=== PATIENT | male | born 1965 | race Caucasian/White ===

== ENCOUNTER 2018-01-09 12:53 | Emergency (ER) | payer OTHER ==
[2018-01-09] MEDS ORDERED: ONDANSETRON HCL 8 MG TABLET PO ONE (13:11)
[2018-01-09] MEDS ORDERED: PROCHLORPERAZINE MALEATE 10 MG TABLET PO ONE (13:11)
[2018-01-09] MEDS ORDERED: DIPHENHYDRAMINE HCL 25 MG CAPSULE PO ONE (13:11)
--- NOTE | 2018-01-09 13:14 | ER Document Report ---
ED Medical Screen (RME) - General Chief Complaint: Headache Stated Complaint: HEADACHE,NAUSEA Time Seen by Provider: 01/09/18 13:05 Notes: 52-year-old male patient drove here from [place] Tuesday night. Got here in the early evening. Onset Tuesday morning of a headache which seemed to come from the base of the skull up over top of his head and behind the eyes and temporal region. There is a roaring in the ears and nausea. He notices that it hurts worse when he looks upward. There is no reproducible tenderness to palpate the posterior cervical muscles or scalp muscles. He has never had anything like this before. I have greeted and performed a rapid initial assessment of this patient. A comprehensive ED assessment and evaluation of the patient, analysis of test results and completion of the medical decision making process will be conducted by additional ED providers. TRAVEL OUTSIDE OF THE [place] IN LAST 30 DAYS: No - Related Data Allergies/Adverse Reactions: No Known Allergies Allergy (Verified 01/09/18 12:54) Past Medical History - Social History Chew tobacco use (# tins/day): No Frequency of alcohol use: None Drug Abuse: None - Past Medical History Cardiac Medical History: Reports: Hx Hypercholesterolemia, Hx Hypertension Renal/ Medical History: Denies: Hx Peritoneal Dialysis Past Surgical History: Reports: Hx Orthopedic Surgery - right knee, left arm Physical Exam - Vital signs Vitals: Temp Pulse Resp BP Pulse Ox 97.9 F 69 20 136/82 H 97 01/09/18 12:59 01/09/18 12:59 01/09/18 12:59 01/09/18 12:59 01/09/18 12:59 Course - Vital Signs Vital signs: Temp Pulse Resp BP Pulse Ox 97.9 F 69 20 136/82 H 97 01/09/18 12:59 01/09/18 12:59 01/09/18 12:59 01/09/18 12:59 01/09/18 12:59
[2018-01-09 14:17] LABS: ABSOLUTE BASOPHILS # (AUTO) 0.1 10^3/uL (0.0-0.2); ABSOLUTE EOSINOPHILS # (AUTO) 0.3 10^3/uL (0.0-0.6); ABSOLUTE LYMPHOCYTES (AUTO) 1.5 10^3/uL (0.5-4.7); ABSOLUTE MONOCYTES (AUTO) 0.5 10^3/uL (0.1-1.4); BASOPHILS % (AUTO) 0.5 % (0-2); EOSINOPHILS % (AUTO) 2.6 % (0-6); HEMATOCRIT 43.4 % (37.9-51.0); HEMOGLOBIN 14.8 g/dL (13.5-17.0); LYMPHOCYTES % (AUTO) 14.2 % (13-45); MEAN CORPUSCULAR HEMOGLOBIN 28.7 pg (27.0-33.4); MEAN CORPUSCULAR HGB CONC 34.2 g/dL (32.0-36.0); MEAN CORPUSCULAR VOLUME 84 fl (80-97); MONOCYTES % (AUTO) 4.8 % (3-13); PLATELET COUNT 234 10^3/uL (150-450); RED BLOOD COUNT 5.17 10^6/uL (4.35-5.55); RED CELL DISTRIBUTION WIDTH 13.4 % (11.5-14.0); SEGMENTED NEUTROPHILS % (AUTO) 77.9 % (42-78); TOTAL CELLS COUNTED % (AUTO) 100 %; WHITE BLOOD COUNT 10.2 10^3/uL (4.0-10.5)
[2018-01-09 14:36] LABS: ALANINE AMINOTRANSFERASE 34 U/L (21-72); ALKALINE PHOSPHATASE 36 U/L (38-126); ANION GAP 10 (5-19); ASPARTATE AMINO TRANSFERASE 23 U/L (17-59); BILIRUBIN,DIRECT 0.4 mg/dL (0.0-0.4); BILIRUBIN,TOTAL 0.4 mg/dL (0.2-1.3); BLOOD UREA NITROGEN 15 mg/dL (7-20); CALCIUM 9.6 mg/dL (8.4-10.2); CARBON DIOXIDE 28 mmol/L (22-30); CHLORIDE 106 mmol/L (98-107); GLUCOSE 92 mg/dL (75-110); POTASSIUM 4.4 mmol/L (3.6-5.0); SODIUM 144.3 mmol/L (137-145); TOTAL PROTEIN 6.9 g/dL (6.3-8.2)
--- NOTE | 2018-01-09 14:36 | RADIOLOGY REPORT (SQ) ---
EXAM DESCRIPTION: CT HEAD WITHOUT COMPLETED DATE/TIME: 01/09/2018 2:25 pm REASON FOR STUDY: Headache with nausea and neck pain COMPARISON: None. TECHNIQUE: Axial images acquired through the brain without intravenous contrast. Images reviewed wi th bone, brain and subdural windows. Additional sagittal and coronal reconstructions were generated. Images stored on PACS. All CT scanners at this facility use dose modulation, iterative reconstruction, and/or weight based d osing when appropriate to reduce radiation dose to as low as reasonably achievable (ALARA). [facility]: Dose Right [facility]: CareDose [facility]: Dose Right [facility]: Teradose 4D [facility]: GetTaxi RADIATION DOSE: CT Rad equipment meets quality standard of care and radiation dose reduction techniq ues were employed. CTDIvol: 53.2 mGy. DLP: 1070 mGy-cm. mGy. LIMITATIONS: None. FINDINGS: VENTRICLES: Normal size and contour. CEREBRUM: No masses. No hemorrhage. No midline shift. No evidence for acute infarction. Normal gra y/white matter differentiation. No areas of low density in the white matter. CEREBELLUM: No masses. No hemorrhage. No alteration of density. No evidence for acute infarction. EXTRAAXIAL SPACES: No fluid collections. 5 mm focal area of calcification in the anterior falx (axia l series 2, image 23 and coronal series 41, image 17). ORBITS AND GLOBE: No intra- or extraconal masses. Normal contour of globe without masses. CALVARIUM: No fracture. PARANASAL SINUSES: No fluid or mucosal thickening. SOFT TISSUES: Calcified records management associate lesions. OTHER: No other significant finding. IMPRESSION: 1. NORMAL BRAIN CT WITHOUT CONTRAST. 2. 5 MM FOCAL AREA OF CALCIFICATION IN THE ANTERIOR FALX. THIS MAY REPRESENT INCIDENTAL CALCIFICATIO N IN THE FALX OR POSSIBLY A TINY MENINGIOMA. 3. CALCIFIED SCALP LESIONS. EVIDENCE OF ACUTE STROKE: NO. COMMENT: Quality ID # [id number]: Final reports with documentation of one or more dose reduction techniques (e.g., Automated exposure control, adjustment of the mA and/or kV according to patient size, use of iterative reconstruction technique) TECHNICAL DOCUMENTATION: JOB ID: [id number] [employer]- All Rights Reserved Reading location - IP/workstation name: [email or web address]
[2018-01-09] MEDS ORDERED: DIAZEPAM 5 MG TABLET PO ONE (14:45)
--- NOTE | 2018-01-09 14:45 | ER Document Report ---
ED General - General Chief Complaint: Headache Stated Complaint: HEADACHE,NAUSEA Time Seen by Provider: 01/09/18 13:05 Mode of Arrival: Ambulatory Information source: Patient, Relative, [facility] Records Notes: 52-year-old male with hypertension, hyperlipidemia presents with complaint of headache, nausea, neck pain. Patient states that 3 days prior to arrival he drove here from [place]. He states that he slept on a futon mattress and when he awoke 2 days ago he had a headache and neck pain. Patient describes the neck pain as a constant throbbing pain that starts in his forehead and radiates down to the back of his neck. Patient has had associated "ear roaring ". He denies any prior similar symptoms, recent illness, fever, blurred vision , weakness. He states he does not currently take any medications. He denies any chest pain, shortness of breath, abdominal pain, leg swelling. He has tried Tylenol, Excedrin and Motrin with minimal relief. Patient's pain is worse with sitting upright, turning his head left and right. TRAVEL OUTSIDE OF THE [place] IN LAST 30 DAYS: No - HPI Onset: Other Onset/Duration: Gradual, Constant, Persistent, Better Quality of pain: Throbbing Severity: Mild Pain Level: 2 Associated symptoms: Headache, Nausea. denies: Chest pain, Nonproductive cough , Productive cough, Earache, Fever, Hurts to breath, Leg swelling, Vomiting, Sinus pain/drainage, Shortness of breath, Sore throat, Weakness Exacerbated by: Movement Relieved by: Remaining still Similar symptoms previously: No Recently seen / treated by doctor: No - Related Data Allergies/Adverse Reactions: No Known Allergies Allergy (Verified 01/09/18 12:54) Past Medical History - General Information source: Patient, [facility] Records - Social History Smoking Status: Never Smoker Chew tobacco use (# tins/day): No Frequency of alcohol use: None Drug Abuse: None Lives with: Spouse/Significant other Family History: Reviewed & Not Pertinent Patient has suicidal ideation: No Patient has homicidal ideation: No - Past Medical History Cardiac Medical History: Reports: Hx Hypercholesterolemia, Hx Hypertension Renal/ Medical History: Denies: Hx Peritoneal Dialysis Past Surgical History: Reports: Hx Orthopedic Surgery - right knee, left arm Review of Systems - Review of Systems Notes: REVIEW OF SYSTEMS: CONSTITUTIONAL : Denies fever, chills, or sweats. Denies recent illness. Denies weight loss, recent hospitalizations. EENT: Denies visual changes, eye pain. Denies nasal or sinus congestion or discharge. Denies sore throat, oral lesions, difficulty swallowing. CARDIOVASCULAR: Denies chest pain. Denies palpitations. Denies lower extremity edema. RESPIRATORY: Denies cough, cold, or chest congestion. Denies shortness of breath, wheezing. GASTROINTESTINAL: Denies abdominal pain or distention. Denies nausea, vomiting , or diarrhea. Denies blood in vomitus, stools, or per rectum. Denies black, tarry stools. Denies constipation. GENITOURINARY: Denies difficulty urinating, painful urination, frequency, blood in urine, or vaginal discharge. MUSCULOSKELETAL: Denies back or neck pain or stiffness. Denies joint pain or swelling. SKIN: Denies rash, lesions or sores. HEMATOLOGIC : Denies easy bruising or bleeding. LYMPHATIC: Denies swollen glands. NEUROLOGICAL: Denies confusion or altered mental status. Denies passing out or loss of consciousness. Denies lightheadedness. Denies weakness or paralysis. Denies problems difficulty with ambulation, slurred speech. Denies sensory loss, numbness, or tingling. Denies seizures. PSYCHIATRIC: Denies anxiety or stress. Denies depression, suicidal ideation, or homicidal ideation. Denies visual or auditory hallucinations. Physical Exam - Vital signs Vitals: Temp Pulse Resp BP Pulse Ox 97.9 F 69 20 136/82 H 97 01/09/18 12:59 01/09/18 12:59 01/09/18 12:59 01/09/18 12:59 01/09/18 12:59 - Notes Notes: PHYSICAL EXAMINATION: GENERAL: Well-appearing, well-nourished and in no acute distress. HEAD: Atraumatic, normocephalic. EYES: Pupils equal round and reactive to light, extraocular movements intact, sclera anicteric, conjunctiva are normal. ENT: Nares patent, oropharynx clear without exudates. Moist mucous membranes. NECK: Normal range of motion, supple without lymphadenopathy. No midline tenderness. No paraspinal tenderness. LUNGS: Breath sounds clear to auscultation bilaterally and equal. No wheezes rales or rhonchi. HEART: Regular rate and rhythm without murmurs ABDOMEN: Soft, nontender, nondistended abdomen. No guarding, no rebound. No masses appreciated. Musculoskeletal: Normal range of motion, no pitting or edema. No cyanosis. NEUROLOGICAL: Cranial nerves grossly intact. Normal speech, normal gait. Normal sensory, motor exams. PSYCH: Normal mood, normal affect. SKIN: Warm, Dry, normal turgor, no rashes or lesions noted. Course - Re-evaluation Re-evalutation: Laboratory 01/09/18 01/09/18 14:06 14:06 WBC 10.2 RBC 5.17 Hgb 14.8 Hct 43.4 MCV 84 MCH 28.7 MCHC 34.2 RDW 13.4 Plt Count 234 Seg Neutrophils % 77.9 Lymphocytes % 14.2 Monocytes % 4.8 Eosinophils % 2.6 Basophils % 0.5 Absolute Neutrophils 8.0 Absolute Lymphocytes 1.5 Absolute Monocytes 0.5 Absolute Eosinophils 0.3 Absolute Basophils 0.1 Sodium 144.3 Potassium 4.4 Chloride 106 Carbon Dioxide 28 Anion Gap 10 BUN 15 Creatinine 0.92 Est GFR ( Amer) > 60 Est GFR (Non-Af Amer) > 60 Glucose 92 Calcium 9.6 Total Bilirubin 0.4 Direct Bilirubin 0.4 Neonat Total Bilirubin Not Reportable Neonat Direct Bilirubin Not Reportable Neonat Indirect Bili Not Reportable AST 23 ALT 34 Alkaline Phosphatase 36 L Total Protein 6.[address] 01/09/18 13:12 IMPRESSION: 1. NORMAL BRAIN CT WITHOUT CONTRAST. 2. 5 MM FOCAL AREA OF CALCIFICATION IN THE ANTERIOR FALX. THIS MAY REPRESENT INCIDENTAL CALCIFICATION IN THE FALX OR POSSIBLY A TINY MENINGIOMA. 3. CALCIFIED SCALP LESIONS. EVIDENCE OF ACUTE STROKE: NO. 01/09/18 14:47 52-year-old male with hypertension, hyperlipidemia presents with complaint of 2 days of headache and neck pain. Patient recently drove from [place] and spent the night on a futon bed and awoke the next morning with a headache and neck pain. He has tried Excedrin Motrin and Tylenol without relief. He denies any prior similar symptoms, recent head trauma, blood thinning medications. Upon arrival vital signs are reviewed and within normal limits. Patient is afebrile, normotensive and not hypoxic. Upon my exam patient was already medicated with Zofran, Benadryl and Compazine and reports that his headache is currently much improved and rates it a 2 out of 10. NIH was performed and 0. Patient has an otherwise normal exam. Symptoms not reproducible with head movement. 01/09/18 15:36 Patient received Toradol, Benadryl, Compazine, Zofran during his ED course. On reevaluation he states that the headache has much improved. Patient ambulated independently without difficulty. Tandem gait within normal limits. Patient still with normal neurologic exam. CT of the head was obtained and showed no evidence of stroke. There was a 5 mm area of calcification in the anterior falx which was discussed with the patient. I will provide him a copy of this report to show to his primary care physician in [place]. CBC is without leukocytosis or anemia. CMP shows no electrolyte abnormalities. Discussed symptoms that should prompt his return which included return of headache, worsening pain, vomiting, slurred speech, weakness. Patient provided the opportunity to ask questions, and express concerns. Discharge instructions discussed. Patient is agreeable with discharge home. Return indications explained and discussed with the patient who displays understanding. Patient encouraged to return to the emergency department immediately with any concerns. After performing a Medical Screening Examination, I estimate there is LOW risk for ACUTE GLAUCOMA, TEMPORAL ARTERITIS, MENINGITIS, INCRANIAL HEMORRHAGE, or ISCHEMIC STROKE thus I consider the discharge disposition reasonable. I have reevaluated this patient multiple times and no significant life threatening changes are noted. The patient and I have discussed the diagnosis and risks, and we agree with discharging home with close follow-up with the understanding that symptoms and presentations can change. We also discussed returning to the Emergency Department immediately if new or worsening symptoms occur. We have discussed the symptoms which are most concerning (e.g., changing or worsening symptoms, new numbness or weakness, vomiting, fever) that necessitate immediate return. 01/09/18 15:38 01/09/18 15:39 - Vital Signs Vital signs: Temp Pulse Resp BP Pulse Ox 98.0 F 84 17 130/68 H 98 01/09/18 15:53 01/09/18 15:53 01/09/18 15:53 01/09/18 15:53 01/09/18 15:53 - Laboratory Result Diagrams: 01/09/18 14:06 01/09/18 14:06 Laboratory results interpreted by me: 01/09/18 14:06 Alkaline Phosphatase 36 L - Diagnostic Test Radiology reviewed: Image reviewed, Reports reviewed Discharge - Discharge Clinical Impression: Dizziness Headache Qualifiers: Headache type: unspecified Headache chronicity pattern: episodic headache Intractability: not intractable Qualified Code(s): R51 - Headache Ear ringing Qualifiers: Laterality: bilateral Qualified Code(s): H93.13 - Tinnitus, bilateral Condition: Good Disposition: HOME, SELF-CARE Instructions: Antinausea Medication ([facility]), Intravenous Compazine for Headaches ([facility]), Use of Diphenhydramine, Headache ([facility]), Toradol Injection ([facility]) Additional Instructions: Follow up with your physician tomorrow for further care or return to the ED IMMEDIATELY if symptoms worsen or new concerns occur. If you cannot afford to follow up with your primary care physician a list of low cost clinics have been provided at the end of your discharge papers as well. Prescriptions: Diazepam [Valium 5 mg Tablet] 5 mg PO QIDP PRN #8 tablet PRN Reason: Ibuprofen [Motrin 600 Mg Tablet] 600 mg PO TID #15 tablet Forms: Elevated Blood Pressure ED NIH Stroke Scale - NIH Stroke Scale When completed:: Before Alteplase *: 1. NIH scale should be completed with appropriate accompanying assessment tools. *: 2. The NIH should reflect what the patient is capable of doing and should not be coached by the clinician. 1a. Level of Consciousness: 0=Alert;keenly responsive -: 1=Drowsy -: 2=Obtunded -: 3=Coma/unresponsive or reflex to noxious stimuli. 1a. Responses: 0 1b. Orientation Questions: a. What month is it? -: b. How old are you? -: 0=Answers both questions correctly. -: 1=Answers one question correctly or patient is intubated or has orotracheal trauma. -: 2=Answers neither question correctly. 1b. Responses: 0 1c. Response to commands: a. Open and close eyes? -: b. Electrical Appliance Mechanic and release hand? -: Credit is given despite weakness. Demonstration of task is permitted. Substitute command if hands cannot be used. -: 0=Performs both tasks correctly -: 1=Performs one task correctly -: 2=Performs neither task correctly 1c. Responses: 0 2. Gaze: Establish eye contact and instruct patient to "Follow my finger" -: 0=Normal -: 1=Partial gaze palsy. Gaze is abnormal in one or both eyes, but where forced deviation or total gaze paresis is not present. -: 2=Forced deviation or total gaze paresis. 2. Responses: 0 3. Visual Martinez: Sees fingers in all four quadrants. -: 0=No visual loss. -: 1=Partial hemianopsia. -: 2=Complete hemianopsia. -: 3=Bilateral hemianopsia (including Cortical blindness) 3. Responses: 0 4. Facial Movement: Instruct patient to: -: a. Show me your teeth -: b. Raise your eyebrows -: c. Close your eyes -: d. Smile -: 0=Normal symmetrical movement -: 1=Minor paralysis (flattened nasolabial fold, asymmetry on smiling). -: 2=Partial paralysis (total or near total paralysis of lower face). -: 3=Complete paralysis of upper and lower face 4. Responses: 0 5. Motor functions (left arm): Alternate sides and extend each arm with palms down (90 degrees if sitting or 45 degrees for supine). -: 0=No drift;limb holds for full 10 seconds. -: 1=Drift; limb holds but drifts down before full 10 seconds, but does not hit bed. -: 2=Some effort against gravity; limb cannot get to or maintain position. -: 3=No effort against gravity; limb falls. -: 4=No movement. -: UN=Amputation, joint fusion, explain in comments. 5. Responses (left arm): 0 5. Motor Functions (right arm): Alternate sides and extend each arm with palms down (90 degrees if sitting or 45 degrees for supine). -: 0=No drift;limb holds for full 10 seconds. -: 1=Drift; limb holds but drifts down before full 10 seconds, but does not hit bed. -: 2=Some effort against gravity; limb cannot get to or maintain position. -: 3=No effort against gravity; limb falls. -: 4=No movement. -: UN=Amputation, joint fusion, explain in comments. 5. Responses (right arm): 0 6. Motor Functions (left leg): With patient lying supine, alternate sides and extend each leg (30 degrees always while supine). -: 0=No drift, leg holds position for full 5 seconds -: 1=Drift; leg falls before full 5 seconds but does not hit bed. -: 2=Some effort against gravity, leg falls to bed but some effort against gravity. -: 3=No effort against gravity, leg falls to bed immediately. -: 4=No movement. -: UN=Amputation, joint fusion; explain in comments. 6. Responses (left leg): 0 6. Motor Functions (right leg): With patient lying supine, alternate sides and extend each leg (30 degrees always while supine). -: 0=No drift, leg holds position for full 5 seconds -: 1=Drift; leg falls before full 5 seconds but does not hit bed. -: 2=Some effort against gravity, leg falls to bed but some effort against gravity. -: 3=No effort against gravity, leg falls to bed immediately. -: 4=No movement. -: UN=Amputation, joint fusion; explain in comments. 6. Responses (right leg): 0 7. Limb Ataxia: With eyes open instruct patient to: -: a. "Touch your finger to your nose". -: b. "Touch your heel to your bledsoe" -: 0=Absent -: 1=Present in one limb. -: 2=Present in two limbs. -: UN=Amputation or joint fusion; explain in comments. 7. Responses: 0 8. Sensory: Test sensation using pinprick or noxious stimuli. Test as many body parts as possible. -: 0=Normal;no sensory loss -: 1=Mile to moderate sensory loss (patient feels pin prick but is less sharp on affected side). -: 2=Severe or total sensory loss. 8. Responses: 0 9. Best Language: Instruct patient to: -: a. "Describe what you see in this picture." -: b. "Name the items in this picture." -: c. "Read these sentences." -: 0=No aphasia, normal -: 1=Mild to moderate aphasia. -: 2=Severe aphasia -: 3=Mute, global aphasia, no usable speech or auditory comprehension. 9. Responses: 0 10. Articulation, Dysarthia: Instruct patient to: -: "Read these words" or "Repeat these words" -: 0=Normal -: 1=Mild to moderate; patient may slur some words but can be understood without difficulty. -: 2=Severe; patients speech so slurred as to be unintelligible in the absence of dysphasia. -: UN=Intubated or other physical barrier, explain in comments. 10. Responses: 0 11. Extinction or inattention: 0=No abnormality -: 1= Visual, tactile, auditory, spatial, or personal inattention or extinction to bilateral simulation in one or the sensory modalities. -: 2=Profound mikaela-inattention or mikaela-inattention to more than one modality; does not recognize own hand. Total Score: 0
[2018-01-09] MEDS ORDERED: KETOROLAC TROMETHAMINE 60 MG/2 ML SDV IM ONE (15:35)
[2018-01-09 15:56] VITALS: BP 130/68
== END 2018-01-09 15:57 | disposition home or self-care (01) ==
LOC: ER 12:53
DX: R51 Headache (principal); H93.13 Tinnitus, bilateral; R42 Dizziness and giddiness; R11.0 Nausea; I10 Essential (primary) hypertension; M54.2 Cervicalgia
CPT/HCPCS: 99284; 96372; 36415; 85025; 80053; 70450; J1885; S0119; S0183

== ENCOUNTER 2018-01-11 12:18 | Emergency (ER) | payer OTHER ==
[2018-01-11] MEDS ORDERED: DIPHENHYDRAMINE HCL 50 MG/ML VIAL IV ONE (12:38)
[2018-01-11] MEDS ORDERED: METOCLOPRAMIDE HCL INJ/PF 10 MG/2 ML SDV IV ONE (12:38)
[2018-01-11] MEDS ORDERED: NORMAL SALINE 1000 ML 1,000 ML IV ONE (12:40)
--- NOTE | 2018-01-11 12:42 | ER Document Report ---
ED Medical Screen (RME) - General Chief Complaint: Headache >24 hrs old Stated Complaint: HEADACHE Time Seen by Provider: 01/11/18 12:32 Notes: RAPID MEDICAL EVALUATION DISCLOSURE I have seen this patient as part of a Rapid Medical Evaluation and, if applicable, placed any initially appropriate orders. The patient will be seen and fully evaluated, including a full history and physical exam, by a provider ( in Main ED or Fast Track) when a room becomes available. 52M seen here a few days ago for same thing here again w frontal KOLB neck pain "roaring in the ears" that has not improved w the motrin valium he was rx'd at last visit. Per chart review, the head CT showed a small calcification in the falx and this was discussed with the patient. His headache is impairing his activities of daily living so he decided to come back. He will not be returning home to [place] until Tuesday and therefore has not yet seen his PCP. EXAM Cranial nerves grossly intact Strength 5/5 with intact sensation all extremities TRAVEL OUTSIDE OF THE [place] IN LAST 30 DAYS: No - Related Data Allergies/Adverse Reactions: No Known Allergies Allergy (Verified 01/11/18 12:22) Past Medical History - Social History Chew tobacco use (# tins/day): No Frequency of alcohol use: None Drug Abuse: None - Past Medical History Cardiac Medical History: Reports: Hx Hypercholesterolemia, Hx Hypertension Renal/ Medical History: Denies: Hx Peritoneal Dialysis Past Surgical History: Reports: Hx Orthopedic Surgery - right knee, left arm Physical Exam - Vital signs Vitals: Temp Pulse Resp BP Pulse Ox 97.6 F 72 18 130/77 H 97 01/11/18 12:23 01/11/18 12:01/11/18 12:01/11/18 12:01/11/18 12:23 Course - Vital Signs Vital signs: Temp Pulse Resp BP Pulse Ox 97.6 F 72 18 130/77 H 97 01/11/18 12:23 01/11/18 12:23 01/11/18 12:23 01/11/18 12:23 01/11/18 12:23
[2018-01-11] MEDS ORDERED: DEXAMETHASONE SOD PHOS INJ 10 MG/1 ML VIAL IV ONE (15:53)
[2018-01-11] MEDS ORDERED: KETOROLAC TROMETHAMINE INJ/PF 30 MG/1 ML SDV IV ONE (15:53)
--- NOTE | 2018-01-11 17:12 | ER Document Report ---
ED General - General Chief Complaint: Headache >24 hrs old Stated Complaint: HEADACHE Time Seen by Provider: 01/11/18 12:32 Information source: Patient Notes: 52-year-old male returns to the emergency department complaining of a continued headache. Patient states that it started on Tuesday, he was seen 1-2 days ago and treated with several IV medications which reduced his headache but it has returned feeling worse than before. Patient describes it as a frontal headache that radiates to behind his eyes and then over top of his head to the back of his neck. States it worsens with standing and with tilting his head up. States it resolves when he lays still. He has some nausea associated with the pain but no nausea when he is not in pain. States that stretching his neck does help. Denies any change with ibuprofen, acetaminophen or Excedrin. Also complains of some ringing in his ears but nothing has changed this. Denies any blurry vision, numbness, tingling, weakness. Denies thunderclap nature, denies fevers. States he has had increased stress in the last week. Described the pain as a stabbing pain in his right episcopalian when he stands up it worsens. Pain is unchanged with Valium he was prescribed on previous ED visit. TRAVEL OUTSIDE OF THE [place] IN LAST 30 DAYS: No - Related Data Allergies/Adverse Reactions: No Known Allergies Allergy (Verified 01/11/18 12:22) Past Medical History - General Information source: Patient - Social History Smoking Status: Never Smoker Chew tobacco use (# tins/day): No Frequency of alcohol use: None Drug Abuse: None Family History: Reviewed & Not Pertinent Patient has suicidal ideation: No Patient has homicidal ideation: No - Past Medical History Cardiac Medical History: Reports: Hx Hypercholesterolemia, Hx Hypertension Renal/ Medical History: Denies: Hx Peritoneal Dialysis Past Surgical History: Reports: Hx Orthopedic Surgery - right knee, left arm Review of Systems - Review of Systems Constitutional: No symptoms reported EENT: See HPI Cardiovascular: No symptoms reported Respiratory: No symptoms reported Gastrointestinal: See HPI. denies: Vomiting Genitourinary: No symptoms reported Musculoskeletal: See HPI Neurological/Psychological: See HPI -: Yes All other systems reviewed and negative Physical Exam - Vital signs Vitals: Temp Pulse Resp BP Pulse Ox 97.6 F 72 18 130/77 H 97 01/11/18 12:23 06/27/18 12:23 01/11/18 12:23 01/11/18 12:23 01/11/18 12:23 Interpretation: Normal - Notes Notes: GENERAL: Alert, interacts well. No acute distress. Lying in the dark but does not appear to be in pain. HEAD: Normocephalic, atraumatic EYES: Pupils equal, round and reactive to light, extraocular movements intact. ENT: Oral mucosa moist, tongue midline. Nares patent, no nasal septal hematoma, TMs intact, injection of the tympanic membranes is noted with small amount of clear fluid. NECK: Full range of motion, supple, trachea midline. Increased tension in the posterior cervical muscles. No nuchal rigidity, no difficulty with range of motion. LUNGS: Clear to auscultation bilaterally, no wheezes, rales or rhonchi, no respiratory distress. HEART: Regular rate and rhythm, no murmurs, gallops, rubs. ABDOMEN: Soft, nontender, nondistended, bowel sounds present in all 4 quadrants. EXTREMITIES: Moves all 4 extremities spontaneously, no edema, radial and dorsalis pedis pulses 2/4 bilaterally. No cyanosis. NEUROLOGICAL: Alert and oriented x3, normal speech, cranial nerves II through XII grossly intact, biceps and patellar DTRs 2+ bilaterally. PSYCH: Normal mood, normal affect. SKIN: Warm, Dry, normal turgor, no rashes or lesions noted. Course - Re-evaluation Re-evalutation: 01/11/18 17:14 Patient was treated with Toradol, Benadryl, Reglan and Decadron to prevent rebound headache. Patient also had OMT in the form of suboccipital inhibition performed, patient was rechecked after approximately an hour and states that his headache is completely gone, when he sits up he gets a small twinge of pain in his right episcopalian and this almost immediately resolves, he is able to stand up without difficulty or recurrence of the pain. Consistent with tension headache, will be discharged home. - Vital Signs Vital signs: Temp Pulse Resp BP Pulse Ox 97.6 F 72 18 130/77 H 97 01/11/18 12:23 01/11/18 12:23 01/11/18 12:23 01/11/18 12:23 01/11/18 12:23 Procedures - Additional Procedures Osteopathic manipulative therapy Notes: 01/11/18 17:16 OMT was performed to 1 body area specifically the cervical spine, somatic dysfunction was seen there with increased tension in the muscles of the posterior cervical spine. Patient responded well to suboccipital inhibition, pain was relieved. Discharge - Discharge Clinical Impression: Tension headache, Cervical paraspinal muscle spasm, Somatic dysfunction of cervical region Condition: Stable Disposition: HOME, SELF-CARE Instructions: Tension Headache ([facility])
[2018-01-11 17:50] VITALS: BP 138/84
== END 2018-01-11 17:50 | disposition home or self-care (01) ==
LOC: ER 12:18
DX: M99.01 Segmental and somatic dysfunction of cervical region (principal); G44.209 Tension-type headache, unspecified, not intractable; M62.830 Muscle spasm of back; R11.0 Nausea; H93.13 Tinnitus, bilateral; I10 Essential (primary) hypertension
CPT/HCPCS: 99284; 96361; 96374; 96375; J1200; J1885; J2765; J7030; J1100